=== PATIENT | female | born 1960 | race Caucasian/White ===

== ENCOUNTER 2017-12-10 14:22 | Emergency (ER) | payer OTHER ==
[2017-12-10] MEDS: SOD CHLORIDE 0.9% 1,000 ML IV (16:22)
[2017-12-10] MEDS: IBUPROFEN 800 MG TAB PO (16:22)
== END 2017-12-10 18:10 | disposition home or self-care (01) ==
LOC: FTE 14:22
DX: B34.9 Viral infection, unspecified (principal)
CPT/HCPCS: 99284-25; J7030

== ENCOUNTER → 2018-12-20 | Emergency (ER) | payer OTHER | END | disposition home or self-care (01) | LOC: FTE 07:19 | DX: R21 Rash and other nonspecific skin eruption (principal) | CPT/HCPCS: 99283 ==